=== PATIENT | male | born 1975 | race Caucasian/White ===

== ENCOUNTER → 2018-12-14 | Outpatient (CLI) | payer OTHER ==
[~2018-12-14] MED LIST: BUPIVACAINE HCL 0.5% 10 ML VIAL As Ordered ONE; CONRAY-43 43% 50ML VIAL (Q9960) As Ordered ONE; LIDOCAINE 1% MDV 20ML VIAL As Ordered ONE; TRIAMCINOLONE ACETONIDE SUSP 40 MG/ML VIAL (J3301) As Ordered ONE
--- NOTE | 2018-12-14 17:22 | REP ---
LEFT SHOULDER INJECTION The procedure was performed under the direct supervision of Dr. Laws. The benefits and risks including but not limited to pain infection bleeding and anaphylaxis were explained to the patient and informed consent was obtained. The left glenohumeral joint space was localized using fluoroscopic guidance. The skin was prepped and draped in a sterile fashion. 1% lidocaine was used as a local anesthetic. Using fluoroscopic guidance a 22-gauge spinal needle was inserted and advanced into the joint. 0.5 ml of Conray 43 was injected to verify placement. 7 ml of a solution containing 3 ml of 1% lidocaine, 3 ml of 0.5% Marcaine and 1 ml of Kenalog 40 mg injected. The needle was then removed. The patient tolerated the procedure well and there were no immediate complications. Less than 6 seconds of fluoroscopy time was utilized for this procedure. Reviewed by MIRZA Martínez 12/14/2018 02:25 P Electronically Signed by Richard Laws MD 12/14/2018 05:13 P
== END ==
LOC: M RADPRO 10:19
DX: M19.012 Primary osteoarthritis, left shoulder (principal)
CPT/HCPCS: 20611; 77002; J3301; Q9960